=== PATIENT | female | born 1975 | race Asian ===

== ENCOUNTER → 2017-07-06 | Outpatient (CLI) | payer MEDICAID | LOC: STAR 11:39 | PROVIDERS: ATTEND Specialist | DX: Z02.9 Encounter for administrative examinations, unspecified (principal) ==

== ENCOUNTER 2017-07-12 09:06 | Day surgery (SDC) | payer MEDICAID ==
[~2017-07-12] VITALS: Ht 162.6 cm; Wt 77.2 kg
[2017-07-12 09:34] VITALS: BP 119/81
[2017-07-12] MEDS ORDERED: LACTATED RINGERS 1,000 ML IV SCH (09:37)
[2017-07-12 09:45] LABS: HCG UR SG 1.029 (1.003-1.030)
[2017-07-12] MEDS ORDERED: BUPIVACAINE/PF 0.25% ONE (10:50)
[2017-07-12] MEDS ORDERED: SILVER NITRATE STICK TP ONE (10:50)
[2017-07-12] MEDS ORDERED: EPINEPHRINE 1 MG/ML, 1ML ONE (10:51)
[2017-07-12] MEDS ORDERED: LIDOCAINE-MPF 2% ,5ML ONE (10:55)
[2017-07-12] MEDS ORDERED: PROPOFOL 10 MG/ML, 20ML ONE (10:55)
[2017-07-12] MEDS ORDERED: DEXAMETHASONE 4 MG/ML, 1ML ONE ×2 (11:13)
[2017-07-12] MEDS ORDERED: ONDANSETRON 2MG/ML, 2ML ONE (11:13)
[2017-07-12] MEDS ORDERED: ROCURONIUM 10 MG/ML,10ML ONE (11:13)
[2017-07-12] MEDS ORDERED: ACETAMINOPHEN 325 MG TABLET PO PRN (11:30)
[2017-07-12] MEDS ORDERED: morphine SULFATE 10 MG/ML, 1ML IV PRN (11:30)
[2017-07-12] MEDS ORDERED: HYDROcodone/APAP 7.5-325MG/15ML UDC PO PRN (11:30)
[2017-07-12] MEDS ORDERED: MEPERIDINE/PF 25MG/0.5ML IVPush PRN (11:30)
[2017-07-12] MEDS ORDERED: OXYcodone 5 MG/5 ML ORAL.SOL UDC PO PRN (11:30)
[2017-07-12] MEDS ORDERED: ONDANSETRON 2MG/ML, 2ML IVPush PRN (11:30)
[2017-07-12] MEDS ORDERED: FENTANYL PF 100 MCG/2ML IV PRN (11:30)
[2017-07-12] MEDS ORDERED: FENTANYL PF 100 MCG/2ML ONE ×2 (11:37→12:15)
[2017-07-12] MEDS ORDERED: OXYcodone 5 MG/5 ML ORAL.SOL UDC ONE (12:15)
[2017-07-12] MEDS ORDERED: ACETAMINOPHEN 650 MG/20.3 ML UDC ONE (12:15)
== END 2017-07-12 14:10 | disposition home or self-care (01) ==
LOC: OUT 09:06
PROVIDERS: ATTEND Specialist
DX: N73.6 Female pelvic peritoneal adhesions (postinfective) (principal)
CPT/HCPCS: 49320; 81025; J0171; J1100; J2405; J2704; J3490; J7120; J3010

== ENCOUNTER → 2017-10-06 | Outpatient (CLI) | payer MEDICAID ==
[~2017-10-06] MED LIST: IBUP200C8 PO
== END ==
LOC: STAR 11:40
PROVIDERS: ATTEND Specialist
DX: Z02.9 Encounter for administrative examinations, unspecified (principal)

== ENCOUNTER 2017-11-28 12:30 | Inpatient (IN) | payer MEDICAID ==
[~2017-11-28] VITALS: Ht 160 cm; Wt 78.6 kg
[2017-12-12] MEDS ORDERED: None per pt (11:14)
[2017-12-13] MEDS ORDERED: FENTANYL PF 250 MCG/5ML ONE (09:27)
[2017-12-13] MEDS ORDERED: MIDAZOLAM 1 MG/ML, 2ML ONE (09:27)
[2017-12-13] MEDS ORDERED: LACTATED RINGERS 1,000 ML IV SCH (09:52)
[2017-12-13 09:53] VITALS: BP 113/75
[2017-12-13] MEDS ORDERED: SCOPOLAMINE PATCH, 1.5MG PATCH.TD72 TD ONE (10:30)
[2017-12-13] MEDS ORDERED: GABAPENTIN 300 MG CAPSULE PO ONE (10:30)
[2017-12-13] MEDS ORDERED: ACETAMINOPHEN 500 MG TABLET PO ONE (10:30)
[2017-12-13] MEDS ORDERED: OxyconTIN ER 10 MG TAB.ER PO ONE (10:30)
[2017-12-13] MEDS ORDERED: ONDANSETRON ODT 8 MG PO ONE (11:00)
[2017-12-13] MEDS ORDERED: INDIGO CARMINE 0.8%, 5ML ONE (11:16)
[2017-12-13] MEDS ORDERED: METHYLENE BLUE 10 MG/ML 10ML ONE (11:16)
[2017-12-13] MEDS ORDERED: KETOROLAC 30 MG/1 ML ONE (11:35)
[2017-12-13] MEDS ORDERED: ONDANSETRON 2MG/ML, 2ML ONE ×2 (11:35→12:28)
[2017-12-13] MEDS ORDERED: EPHEDRINE 50 MG/ML, 1ML ONE (11:35)
[2017-12-13] MEDS ORDERED: HEPARIN 1,000 UNITS/ML, 10ML ONE (12:22)
[2017-12-13] MEDS ORDERED: ROCURONIUM 10MG/ML,5ML ONE ×2 (12:28→13:35)
[2017-12-13] MEDS ORDERED: DEXAMETHASONE 4 MG/ML, 1ML ONE (12:28)
[2017-12-13] MEDS ORDERED: NEOSTIGMINE 1 MG/ML, 10ML ONE (12:28)
[2017-12-13] MEDS ORDERED: BUPIVACAINE/PF 0.25% ONE ×2 (12:28)
[2017-12-13] MEDS ORDERED: PROPOFOL 10 MG/ML, 20ML ONE (12:28)
[2017-12-13] MEDS ORDERED: CEFAZOLIN 1,000 MG ONE (12:28)
[2017-12-13] MEDS ORDERED: GLYCOPYRROLATE 0.2MG/1ML, 5ML ONE (12:28)
[2017-12-13] MEDS ORDERED: SUCCINYLCHOLINE 20 MG/ML, 10ML ONE (12:28)
[2017-12-13] MEDS ORDERED: DIAZEPAM 5 MG/ML, 2ML IVPush PRN (13:00)
[2017-12-13] MEDS ORDERED: ONDANSETRON ODT 8 MG PO PRN (13:00)
[2017-12-13] MEDS ORDERED: DIPHENHYDRAMINE 50 MG/ML, 1ML IVPush PRN (13:00)
[2017-12-13] MEDS ORDERED: HYDROmorphone 1 MG/ML, 1ML IV PRN (13:00)
[2017-12-13] MEDS ORDERED: MEPERIDINE/PF 25MG/0.5ML IVPush PRN (13:00)
[2017-12-13] MEDS ORDERED: OXYcodone 5 MG/5 ML ORAL.SOL UDC PO PRN ×2 (13:00→18:30)
[2017-12-13] MEDS ORDERED: LABETALOL 5MG/ML, 20ML IV PRN (13:00)
[2017-12-13] MEDS ORDERED: FENTANYL PF 100 MCG/2ML IV PRN (13:00)
[2017-12-13] MEDS ORDERED: MORPHINE SULFATE 4 MG/ML, 1ML IVPush PRN (13:00)
[2017-12-13] MEDS ORDERED: EPHEDRINE 50 MG/ML, 1ML IM PRN (13:00)
[2017-12-13] MEDS ORDERED: ALBUTEROL/IPRATROPIUM 2.5MG/0.5MG, 3 ML NPPB PRN (13:00)
[2017-12-13] MEDS ORDERED: HALOPERIDOL 5 MG/ML IV PRN (13:00)
[2017-12-13] MEDS ORDERED: MIDAZOLAM 1 MG/ML, 2ML IV PRN (13:00)
[2017-12-13] MEDS ORDERED: PROMETHAZINE 25 MG/ML, 1ML IV PRN (13:00)
[2017-12-13] MEDS ORDERED: HYDROmorphone 2 MG/ML, 1ML IV PRN (18:30)
[2017-12-13] MEDS ORDERED: ONDANSETRON 2MG/ML, 2ML IV PRN (18:30)
[2017-12-13] MEDS ORDERED: MEPERIDINE/PF 100 MG/ML IM PRN (18:30)
[2017-12-13] MEDS: KETOROLAC 30 MG/1 ML IV SCH (19:44)
[2017-12-13 19:52] VITALS: BP 118/55
[2017-12-13] MEDS ORDERED: CEFAZOLIN PMX 2GM/50ML 50 ML IVPB SCH (20:00)
[2017-12-13] MEDS: POTASSIUM CHLORIDE 20 MEQ in D5%-LACTATED RINGERS 1,000 ML IV SCH (21:19)
[2017-12-13] MEDS: SIMETHICONE 80 MG CHEW TAB PO SCH (21:19)
[2017-12-13] MEDS: DOCUSATE 100 MG CAPSULE PO SCH (21:19)
[2017-12-13 23:54] VITALS: BP 102/54
[2017-12-14] MEDS: KETOROLAC 30 MG/1 ML IV SCH ×3 (01:41→14:36)
[2017-12-14 03:38] VITALS: BP 107/52
[2017-12-14] MEDS: POTASSIUM CHLORIDE 20 MEQ in D5%-LACTATED RINGERS 1,000 ML IV SCH (06:13)
[2017-12-14 06:41] VITALS: BP 98/60
[2017-12-14] MEDS: SIMETHICONE 80 MG CHEW TAB PO SCH (07:43)
[2017-12-14] MEDS: DOCUSATE 100 MG CAPSULE PO SCH (07:43)
[2017-12-14] MEDS ORDERED: OXYC5CAP2 PO (14:24)
[2017-12-14] MEDS ORDERED: IBUP200T49 PO (14:25)
[2017-12-14 14:55] VITALS: BP 106/70
[2017-12-14] MEDS ORDERED: IBUPROFEN 600 MG TABLET PO SCH (18:00)
== END 2017-12-14 16:22 | disposition home or self-care (01) | DRG 743 ==
LOC: ORIP 12-13 08:57 → 4NOR 12-13 16:59 → DCLOUNGE 12-14 16:15
PROVIDERS: ADMIT Specialist; ATTEND Specialist
PROC: 0U1 Female Reproductive System, Bypass (ICD-10-PCS; 2017-12-13)
PROC: 0U1 Female Reproductive System, Bypass (ICD-10-PCS; principal; 2017-12-13 11:00)
DX: N83.8 Other noninflammatory disorders of ovary, fallopian tube and broad ligament (principal); N73.6 Female pelvic peritoneal adhesions (postinfective); Z86.11 Personal history of tuberculosis
CPT/HCPCS: 36415; 81025; 85014; 85018; J0690; J1100; J1644; J1885; J2250; J2405; J2704; J2710; J3010; J3480; J3490; Q0162; J0330; J7121; Q9968